=== PATIENT | male | born 1985 | race Caucasian/White ===

== ENCOUNTER 2020-06-14 19:54 | Emergency (ER) | payer SELFPAY ==
[~2020-06-14] VITALS: Ht 172.7 cm; Wt 79.5 kg
[2020-06-14 20:02] VITALS: BP 144/91
[2020-06-14] MEDS ORDERED: LORazepam 2 mg/ml vial IM ONE (20:45)
[2020-06-14] MEDS ORDERED: erythromycin ophthalmic ointment 1gm tube LEFTEYE ONE ×2 (21:15)
== END 2020-06-14 21:29 | disposition home or self-care (01) ==
LOC: ER 19:55
DX: T15.12XA Foreign body in conjunctival sac, left eye, initial encounter (principal); H57.12 Ocular pain, left eye; F12.90 Cannabis use, unspecified, uncomplicated; Z72.89 Other problems related to lifestyle; X58.XXXA Exposure to other specified factors, initial encounter; Y93.89 Activity, other specified; Y92.89 Other specified places as the place of occurrence of the external cause; Y99.8 Other external cause status
CPT/HCPCS: 65222; 96372; 99284; J2060